=== PATIENT | female | born 1995 | race Caucasian/White ===

== ENCOUNTER 2021-01-05 12:24 | Emergency (ER) | payer OTHER, SELFPAY ==
[2021-01-05 12:32] VITALS: BP 119/69; PULSE 120; RESP 16; TEMP 37.1; O2SAT 100
--- NOTE | 2021-01-05 12:51 | ED.URI ---
HPI - URI/Sore Throat General Chief Complaint: Upper Respiratory Infection Stated Complaint: sore throat Time Seen by Provider: 01/05/21 12:52 Source: patient and family Mode of arrival: ambulatory History of Present Illness HPI Narrative: Patient presents with a sore throat. Denies any other symptoms no nasal congestion no cough. Patient denies any concern for COVID-19. MD elicited complaint: sore throat Related Data Home Medications Medication Instructions Recorded Confirmed eluxadoline 100 mg tablet 100 mg PO BID 05/01/19 01/05/21 metformin 500 mg tablet 500 mg PO DAILY 05/01/19 01/05/21 spironolactone 100 mg tablet 100 mg PO BID 05/01/19 01/05/21 escitalopram oxalate 10 mg PO DAILY 01/05/21 01/05/21 montelukast 10 mg PO DAILY 01/05/21 01/05/21 Allergies Allergy/AdvReac Type Severity Reaction Status Date / Time No Known Allergies Allergy Verified 01/05/21 12:48 Review of Systems Review of Systems: CONSTITUTIONAL: Denies chills, or sweats. Reports fever and generalized body aches EYES: Denies visual changes, redness, or discharge. ENT: Denies otalgia. Reports nasal congestion runny nose and sore throat CARDIOVASCULAR: Denies chest pain, palpitations, or edema. RESPIRATORY: Denies dyspnea. Reports occasional cough GASTROINTESTINAL: Denies abdominal pain, nausea, vomiting, or diarrhea. GENITOURINARY: Denies dysuria or hematuria. SKIN: Denies rash or itching. MUSCULOSKELETAL: Denies back pain, joint pain, or myalgia. Reports generalized body aches NEUROLOGIC: Denies headache, numbness, or weakness. PSYCHIATRIC: Denies anxiety or depression. [facility] Past Medical History Medical History (Updated 01/05/21 @ 12:55 by CODY Castro) GERD (gastroesophageal reflux disease) History of gastritis Temporomandibular disorder Family History Family History Father Hypertension Mother Multiple sclerosis Unknown Diabetes mellitus Social History Social History Smoking status: Never smoker Comments At time of signature, agree with nursing past medical, surgical, social and family history. There is no relevant family history pertinent to the presenting complaint Exam Narrative: The patient is a well-developed, well-nourished in no acute distress. SKIN: Skin is warm and dry without erythema, swelling or exudate. There is good turgor. No tenting. HEAD: Atraumatic. Normocephalic. No temporal or scalp tenderness. EYES: Moist and bright. Sclera and conjunctivae normal. No discharge. PERRLA. Extraocular motions intact. Gross visual acuity intact. EARS: Pinna is normal shape and contour. Clear external auditory canals. TM pearly zhu with good cone of light, no erythema or suppuration. Bilateral cerumen noted no gross hearing deficit. NOSE: pink, moist mucosa with good air movement. Clear rhinorrhea without nasal flaring. Septum midline. Mouth: moist mucous membranes. THROAT; mild erythema noted to posterior oropharynx with moderate postnasal drainage. Without exudate or ulceration.. Uvula midline. Normal movement of soft palate. NECK: Supple and nontender with full range of motion without discomfort. No meningeal signs. LUNGS: Equal and bilateral breath sounds without wheezes, rales or rhonchi. CHEST: The chest wall is without retractions or use of accessory muscles. HEART: Has a regular rate and rhythm without murmur, gallops, click or rub. ABDOMEN: Soft, nontender with positive active bowel sounds. No rebound tenderness. EXTREMITIES: Without cyanosis, clubbing or edema. Equal 2+ distal pulses and 2 second capillary refill noted. NEUROLOGIC: alert, active, . The patient moves all extremities with normal muscle strength. Normal muscle tone is noted. Normal coordination is noted. NO focal neurological findings noted. Course Vital Signs Vital signs: Vital Signs Temperature 37.1 C 01/05/21 12:32 Pulse
[2021-01-05 12:55] VITALS: PULSE 96
== END 2021-01-05 12:55 | disposition home or self-care (01) ==
PROVIDERS: Emergency Provider Nurse Practitioner Family; PCP Family Medicine
DX: J02.9 Acute pharyngitis, unspecified (principal); K21.9 Gastro-esophageal reflux disease without esophagitis
CPT/HCPCS: 87081; 87880; 99213; G0463

== ENCOUNTER 2021-01-07 14:52 | Emergency (ER) | payer OTHER, SELFPAY ==
--- NOTE | ~2021-01-07 | XR_ITS ---
EXAMINATION: XR chest 1V portable DATE: 01/07/2021 15:40 INDICATION: Syncope. TECHNIQUE: A single frontal view of the chest was obtained. COMPARISON: None. FINDINGS: The chest demonstrates clear lungs without pneumonia, pleural effusion, or pneumothorax. Th e heart size is normal. IMPRESSION: 1. No acute cardiopulmonary disease. Reviewed, dictated and finalized at location A.
[2021-01-07 14:56] VITALS: BP 118/75; PULSE 106; RESP 16; TEMP 36.4; O2SAT 99
--- NOTE | 2021-01-07 15:02 | ECG_ITS ---
Measurements Intervals [place] Rate: 84 P: 54 AL: 115 QRS: 68 QRSD: 93 T: 38 QT: 345 QTc: 408 Interpretive Statements SINUS RHYTHM WITH SHORT AL INTERVAL LEFT ATRIAL ENLARGEMENT INCOMPLETE RIGHT BUNDLE BRANCH BLOCK BASELINE ARTIFACT- I, II, III, AVR, AVL, AVF, V1-V6 BORDERLINE ECG Electronically Signed On 01-07-2021 15:05:51 CDT by Pollo Benoit D.O.
[2021-01-07 15:05] VITALS: PULSE 85
[2021-01-07 15:10] LABS: Glucose Point of Care 127 mg/dl (65-105)
[2021-01-07 15:20] LABS: Basophils Percent Auto 0.3 % (0.2-1.2); Eosinophils Absolute Auto 0.1 K/mm3 (0-0.3); Eosinophils Percent Auto 0.4 % (0-4.4); Hematocrit 37.8 % (37.0-47.0); Hemoglobin 12.4 g/dL (12.0-15.0); Immature Granulocyte Absolute 0.05 K/mm3 (0.00-0.031); Immature Granulocyte Percent A 0.4 % (0-0.5); Lymphocytes Absolute Auto 2.06 K/mm3 (0.9-3.2); Lymphocytes Percent Auto 17.7 % (18.3-44.2); Mean Corpuscular HGB Conc 32.8 g/dl (32-36); Mean Corpuscular Hemoglobin 30.5 pg (26-34); Mean Corpuscular Volume 93.1 fl (80-100); Mean Platelet Volume 10.6 fl (7.4-10.4); Monocytes Absolute Auto 0.8 K/mm3 (0.1-0.6); Monocytes Percent Auto 6.5 % (2.6-8.5); Neutrophils Absolute Auto 8.7 K/mm3 (1.3-6.7); Neutrophils Percent Auto 74.7 % (45.5-73.1); Platelet Count Result 272 k/mm3 (150-375); Red Blood Count 4.06 M/mm3 (4.2-5.4); Red Cell Distribution Width 13.6 % (11.5-14.5); White Blood Count 11.6 K/mm3 (4.5-10.0)
--- NOTE | 2021-01-07 15:21 | ED.SYNCOPE ---
HPI - Syncope General Chief Complaint: Syncope Stated Complaint: SYNCOPAL EPISODE Time Seen by Provider: 01/07/21 15:05 Source: patient and EMS Mode of arrival: EMS Limitations: no limitations History of Present Illness HPI narrative: This is a 25 year old female who presents for evaluation of a syncopal episode. She states she was standing up at work when she sufferred a syncopal episode. She works at [employer] and she states she has been there since 830 am this morning. She felt fine prior syncopal episodes. She reports she was standing, talking to someone and she felt wobbly. She does not remember what happened afterwards. It is reported that patient was sweating. Patient currently states she is lightheaded and sweaty after getting blood drawn in ED today. She denies chest pain, palpitations, headache, vomiting, diarrhea, sob or abdominal pain. She denies previous history of syncope but she does have history of feeling lightheaded with lab draws. She takes metformin 500 mg daily for PCOS and prediabetes. She also takes lexapro and she states she has been taking her lexapro in the morning over the past 2 days. Related Data Home Medications Medication Instructions Recorded Confirmed eluxadoline 100 mg tablet 100 mg PO BID 05/01/19 01/05/21 metformin 500 mg tablet 500 mg PO DAILY 05/01/19 01/05/21 spironolactone 100 mg tablet 100 mg PO BID 05/01/19 01/05/21 escitalopram oxalate 10 mg PO DAILY 01/05/21 01/05/21 montelukast 10 mg PO DAILY 01/05/21 01/05/21 Allergies Allergy/AdvReac Type Severity Reaction Status Date / Time No Known Allergies Allergy Verified 01/05/21 12:48 Review of Systems Review of Systems: All systems reviewed & are unremarkable except as noted in HPI and below PMFSH Past Medical History Medical History (Updated 01/07/21 @ 16:29 by Tami Okeefe MD) GERD (gastroesophageal reflux disease) History of gastritis Temporomandibular disorder Family History Family History Father Hypertension Mother Multiple sclerosis Unknown Diabetes mellitus Social History Social History Smoking status: Never smoker Exam Const: General: no acute distress and alert Orientation/consciousness: patient oriented x3 HENMT: Head: normocephalic and atraumatic Face and sinus: face symmetric Throat: posterior oropharynx normal Eyes: Pupils: Equal, round and reactive pupils present EOM: EOMs intact bilaterally Resp: Effort & Inspection: normal respiratory effort and no retractions Auscultation: clear to auscultation bilaterally Cardio: Rate: regular rate Rhythm: regular rhythm Heart sounds: no murmurs GI: Auscultation: normal bowel sounds Other: soft, nondistened, nontender Skin: General skin exam: normal color Rashes: no rashes Neuro: General: patient oriented x3, moves all extremities and CN's II-XI intact bilaterally Psych: Mental Status: mental status grossly normal Affect: normal affect Course Reevaluation(s) Reevaluation #1: Patient states she feels normal. She likely had vasovagal syncopal episode. I discussed she will need to follow up with PCP. Date: 01/07/21 Time: 16:28 Vital Signs Vital signs: Vital Signs Temperature 97.6 F 01/07/21 14:56 Pulse Rate 106 H 01/07/21 14:56 Respiratory Rate 16 01/07/21 14:56 Blood Pressure 118/75 01/07/21 14:56 Pulse Oximetry 99 01/07/21 14:56 Temperature 97.6 F 01/07/21 14:56 Pulse Rate 66 01/07/21 16:36 Respiratory Rate 16 01/07/21 16:36 Blood Pressure 110/77 01/07/21 16:36 Pulse Oximetry 100 01/07/21 16:36 MDM - Syncope Medical Records Attestation: I reviewed the patient's medical records. Lab Data Attestation: I reviewed the patient's lab results. Result diagrams: 01/07/21 15:13 01/07/21 15:13 Labs: Lab Results 01/07/21 01/07/21 01/07/21
[2021-01-07 15:29] LABS: Anion Gap 9 mmol/L (8-16); Blood Urea Nitrogen 13 mg/dL (7-17); Carbon Dioxide 26 mmol/L (22-30); Chloride 98 mmol/L (98-107); Estimated CRCL calculation 75 ml/min; Estimated Glomerular Filt Rate > 60; Glucose 107 mg/dL (65-110); Potassium 3.9 mmol/L (3.4-5.0); Sodium 133 mmol/L (137-145)
[2021-01-07] MEDS: LACTATED RINGERS 1,000 ML 999 ML IV CONT (15:34)
[2021-01-07] MEDS: ONDANSETRON INJ 4 MG/2 ML VIAL IV PUSH (15:34)
[2021-01-07 15:56] LABS: INR 0.9
[2021-01-07 15:57] LABS: Partial Thromboplastin Time 23.5 SECONDS (22.3-36.8)
[2021-01-07 15:58] LABS: Alanine Aminotransferase 17 U/L (4-35); Albumin Level 4.3 g/dL (3.5-5.1); Alkaline Phosphatase 69 U/L (38-126); Aspartate Amino Transferase 27 U/L (14-36); Bilirubin,Total 0.3 mg/dL (0.2-1.3); Magnesium 1.8 mg/dL (1.6-2.3)
[2021-01-07 16:05] LABS: D Dimer 0.27 ug/mL (<0.48)
[2021-01-07 16:14] LABS: Troponin I < 0.012 ng/mL (0.000-0.034)
[2021-01-07 16:15] VITALS: BP 107/62; BP 108/75; BP 110/64; PULSE 74; PULSE 75; PULSE 82
[2021-01-07 16:36] VITALS: BP 110/77; PULSE 66; RESP 16; O2SAT 100
[2021-01-07 17:00] VITALS: BP 112/88; PULSE 77; RESP 16; O2SAT 100
== END 2021-01-07 17:00 | disposition home or self-care (01) ==
PROVIDERS: Emergency Provider General Practice; PCP Family Medicine
DX: R55 Syncope and collapse (principal); K21.9 Gastro-esophageal reflux disease without esophagitis; R94.31 Abnormal electrocardiogram [ECG] [EKG]; I45.10 Unspecified right bundle-branch block
CPT/HCPCS: 36415; 71045; 80048; 80076; 81025; 82948; 83735; 84484; 85025; 85380; 85610; 85730; 93005; 96361; 96374; 99284; J2405; J7120

== ENCOUNTER 2021-04-21 10:49 | Emergency (ER) | payer OTHER, SELFPAY ==
[2021-04-21 10:58] VITALS: BP 102/61; PULSE 85; RESP 16; TEMP 36.8; O2SAT 100
[2021-04-21 11:13] VITALS: BP 102/61; PULSE 85; RESP 16; TEMP 36.8; O2SAT 100
--- NOTE | 2021-04-21 11:30 | ED.FEMALEGU ---
HPI - Female Genitourinary General Chief complaint: Urogenital-Female Stated complaint: Left Side Pain Time Seen by Provider: 04/21/21 11:20 Source: patient, RN notes reviewed and old records reviewed Mode of arrival: ambulatory Limitations: no limitations History of Present Illness HPI Narrative: 25 year old female with complaints of left lateral abdomen region pain with associated left flank pain for the past month. Patient denies any burning or pain with urination, denies any blood noted in her urine or any foul odor. She reports that she saw her PCP and was placed on muscle relaxers which did not help her discomfort at all. She denies any vaginal discharge or any itching, denies any concern for STD's.Patient reports that she has never had any urinary difficulty or infections in the past. Patient reports that her pain is constant and at times sharp, increases when she coughs, moves, or breaths. MD elicited complaint: flank pain (left ) Related Data Home Medications Medication Instructions Recorded Confirmed cyclobenzaprine 5 mg PO BID PRN 04/21/21 04/21/21 doxycycline monohydrate [Oracea] 40 cap PO DAILY 04/21/21 04/21/21 eluxadoline [Viberzi] 100 mg PO BID 04/21/21 04/21/21 glycopyrrolate 1 mg PO BID 04/21/21 04/21/21 metformin 500 mg PO BID 04/21/21 04/21/21 Allergies Allergy/AdvReac Type Severity Reaction Status Date / Time No Known Allergies Allergy Verified 04/21/21 11:05 Review of Systems Review of Systems: CONSTITUTIONAL: Denies fever, chills, or sweats. EYES: Denies visual changes, redness, or discharge. ENT: Denies rhinorrhea, congestion, sore throat, or otalgia. CARDIOVASCULAR: Denies chest pain, palpitations, or edema. RESPIRATORY: Denies cough or dyspnea. GASTROINTESTINAL: left sided mid lateral abdominal pain, no nausea, vomiting, or diarrhea. GENITOURINARY: Denies dysuria or hematuria. SKIN: Denies rash or itching. MUSCULOSKELETAL: Positive for left flank area back pain, joint pain, or myalgia. NEUROLOGIC: Denies headache, numbness, or weakness. PSYCHIATRIC: Denies anxiety or depression. All systems reviewed & are unremarkable except as noted in HPI and below PMFSH Past Medical History Medical History (Updated 04/22/21 @ 00:01 by Tiffani Carlson) IBS (irritable bowel syndrome) PCOS (polycystic ovarian syndrome) Surgical History Surgical History (Updated 04/25/21 @ 17:12 by Glenny Yanes NP) No history of previous surgery Family History Family History (Updated 04/25/21 @ 17:12 by Glenny Yanes NP) Other No significant family history Social History Social History (Updated 04/25/21 @ 17:11 by Glenny Yanes NP) Smoking status: Never smoker Substance use: never Gender identity (if verbalized by the patient): Female Comments At time of signature, agree with nursing past medical, surgical, social and family history. There is no relevant family history pertinent to the presenting complaint Exam Narrative: GENERAL: Well-appearing, well-nourished, and in no acute distress. HEAD: Normocephalic, atraumatic. EYES: PERRLA and EOMI. ENT: Nares clear, no rhinorrhea or epistaxis. Mucous membranes moist. NECK: Supple.no lymphadenopathy CHEST: Clear to auscultation. No respiratory distress.SO2 100% on room air HEART: Regular rate and rhythm. No murmur heard. Normal peripheral pulses. ABDOMEN: Soft, tender,left middle lateral abdominal area, nondistended, normal active bowel sounds.no nausea or vomiting or diarrhea. left flank pain. EXTREMITIES: Normal range of motion. No edema. SKIN: Warm, dry, no rash. NEURO: No focal deficits. Alert and oriented x3. Course Vital Signs Vital signs: Vital Signs Temperature 36.8 C 04/21/21 10:58 Pulse Rate 85 04/21/21 10:58 Respiratory Rate 16 04/21/21 10:58 Blood Pressure 102/61 04/21/21 10:58 Pulse Oximetry 100 04/21/21 10:58 Temperature 36.8 C 04/21/21 11:13 Pulse Rate 85 04/21/21 11:13 Respiratory Rate
== END 2021-04-21 11:45 | disposition home or self-care (01) ==
PROVIDERS: Emergency Provider Registered Nurse; PCP Family Medicine
DX: N39.0 Urinary tract infection, site not specified (principal); E28.2 Polycystic ovarian syndrome
CPT/HCPCS: 81003; 87086; 87088; 99213; G0463